=== PATIENT | female | born 1990 | race Hispanic/Latino ===

== ENCOUNTER 2019-06-13 14:11 | Emergency (ER) | payer MEDICAID ==
[2019-06-13 14:18] VITALS: BP 119/74
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
== END 2019-06-13 16:45 | disposition home or self-care (01) ==
LOC: ED 14:11
DX: S39.012A Strain of muscle, fascia and tendon of lower back, initial encounter (principal); R25.2 Cramp and spasm; G43.909 Migraine, unspecified, not intractable, without status migrainosus; F17.200 Nicotine dependence, unspecified, uncomplicated; F12.10 Cannabis abuse, uncomplicated; Z79.899 Other long term (current) drug therapy; V89.2XXA Person injured in unspecified motor-vehicle accident, traffic, initial encounter; Y93.89 Activity, other specified; Y92.410 Unspecified street and highway as the place of occurrence of the external cause; Y99.8 Other external cause status
CPT/HCPCS: 99282

== ENCOUNTER 2020-03-01 22:35 | Emergency (ER) | payer MEDICAID ==
[2020-03-01 22:41] VITALS: BP 122/82
[2020-03-01 23:20] LABS: Bacteria,Urine 1+ /HPF (Negative); Bilirubin,Urine NEG (Negative); Blood,Urine NEG (Negative); Color,Urine Yellow (Yellow); Mucus,Urine 3+ /HPF; Protein,Urine <15 mg/dL mg/dL (Negative)
[2020-03-01 23:25] LABS: Basophils # (Auto) 0.1 K/mm3 (0.0-0.1); Basophils % (Auto) 0.7 % (0.0-1.8); Eosinophils # (Auto) 0.2 K/mm3 (0.0-0.4); Eosinophils % (Auto) 1.9 % (0.0-4.3); Hematocrit 37.7 % (30.3-42.9); Hemoglobin 12.7 gm/dl (10.1-14.3); Lymphocytes # (Auto) 3.2 K/mm3 (1.2-5.4); Lymphocytes % (Auto) 37.1 % (13.4-35.0); Mean Corpuscular HGB Conc 34 % (30-34); Mean Corpuscular Volume 92 fl (79-97); Monocytes # (Auto) 0.8 K/mm3 (0.0-0.8); Platelet Count 257 K/mm3 (140-440)
[2020-03-01 23:31] LABS: Alanine Aminotransferase 11 units/L (7-56); Albumin 4.5 g/dL (3.9-5); BUN/Creatinine Ratio 17; Blood Urea Nitrogen 12 mg/dL (7-17); Calcium 9.2 mg/dL (8.4-10.2); Hemolysis Index 1
== END 2020-03-02 01:10 | disposition left against medical advice (07) ==
LOC: ED 22:35
DX: R10.9 Unspecified abdominal pain (principal); Z53.21 Procedure and treatment not carried out due to patient leaving prior to being seen by health care provider
CPT/HCPCS: 36415; 80053; 81001; 84702; 85025

== ENCOUNTER 2020-06-10 18:37 | Emergency (ER) | payer MEDICAID ==
[2020-06-10 18:47] VITALS: BP 108/71
[2020-06-10 19:28] LABS: Mean Corpuscular HGB Conc 34 % (30-34); Mean Corpuscular Volume 92 fl (79-97); Platelet Count 304 K/mm3 (140-440); Red Blood Count 4.14 M/mm3 (3.65-5.03); Red Cell Distribution Width 12.8 % (13.2-15.2)
[2020-06-10 20:16] LABS: Total Cells Counted 100
[2020-06-10 20:17] LABS: Basophils % (Manual) 0 % (0.0-1.8); Eosinophils % (Manual) 0 % (0.0-4.3)
[2020-06-10 20:18] LABS: Platelet Estimate Consistent w Auto; RBC Morphology Normal
== END 2020-06-10 22:30 | disposition left against medical advice (07) ==
LOC: ED 18:37
DX: O20.8 Other hemorrhage in early pregnancy (principal); O26.891 Other specified pregnancy related conditions, first trimester; R10.9 Unspecified abdominal pain; Z3A.09 9 weeks gestation of pregnancy; Z53.21 Procedure and treatment not carried out due to patient leaving prior to being seen by health care provider
CPT/HCPCS: 36415; 84702; 84703; 85007; 85025; 86900; 86901

== ENCOUNTER 2020-10-25 14:28 | Emergency (ER) | payer MEDICAID ==
[2020-10-25 14:55] VITALS: BP 103/58
--- NOTE | 2020-10-25 15:51 | Event Note ---
ED Screening Note Date of service: 10/25/20 Time: 15:48 ED Screening Note: 30-year-old female presents to the emergency room reporting that she feels her jaw is dislocated. Patient denies any trauma. She is currently 7 months . Patient is taking nothing for her pain. Patient reports she has a history of jaw dislocation and discharge today when he came out. Dr. Godoy came to evaluate patient agrees that jaw is dislocated. Patient will be evaluated by the main ER docs. This initial assessment/diagnostic orders/clinical plan/treatment(s) is/are subject to change based on patients health status, clinical progression and re- assessment by fellow clinical providers in the ED. Further treatment and workup at subsequent clinical providers discretion. Patient/guardian urged not to elope from the ED as their condition may be serious if not clinically assessed and managed. Initial orders include:
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
== END 2020-10-25 23:00 | disposition home or self-care (01) ==
LOC: ED 14:28
DX: S03.00XA Dislocation of jaw, unspecified side, initial encounter (principal); G43.909 Migraine, unspecified, not intractable, without status migrainosus; Z79.899 Other long term (current) drug therapy; X58.XXXA Exposure to other specified factors, initial encounter; Y93.89 Activity, other specified; Y92.89 Other specified places as the place of occurrence of the external cause; Y99.8 Other external cause status
CPT/HCPCS: 99281

== ENCOUNTER 2020-12-04 01:15 | Outpatient (CLI) | payer MEDICAID ==
[2020-12-04 01:46] VITALS: BP 121/74
[2020-12-04] MEDS ORDERED: LACTATED RINGERS 1,000 ML IV ONE (01:57)
[2020-12-04 03:08] LABS: Amorphous Crystals,Urine Few; Bacteria,Urine 1+ /HPF (Negative); Bilirubin,Urine NEG (Negative); Blood,Urine NEG (Negative); Color,Urine Yellow (Yellow); Protein,Urine <15 mg/dL mg/dL (Negative); Urobilinogen,Urine < 2.0 mg/dL (<2.0)
== END 2020-12-04 04:33 | disposition home or self-care (01) ==
LOC: TRG 01:15 → APU 01:17 → TRG 04:33
PROVIDERS: ATTEND Obstetrics & Gynecology
DX: O47.03 False labor before 37 completed weeks of gestation, third trimester (principal); O99.333 Smoking (tobacco) complicating pregnancy, third trimester; F17.200 Nicotine dependence, unspecified, uncomplicated; O99.323 Drug use complicating pregnancy, third trimester; F12.90 Cannabis use, unspecified, uncomplicated; Z3A.34 34 weeks gestation of pregnancy
CPT/HCPCS: 59025; 81001; 87086; 96361; 96365; J0690; J7120; 96360

== ENCOUNTER 2021-01-02 07:50 | Inpatient (IN) | payer MEDICAID ==
--- NOTE | 2021-01-02 09:50 | History and Physical Report ---
History of Present Illness Date of examination: 01/02/21 Date of admission: 01/02/21 Chief complaint: Pt presented with c/o uc and bloody show. History of present illness: Pt presented to [facility] with c/o uc and bloody show. She denied LOF and admitted to active FM. Pt states she initiated her pnc at [facility] in early preg. According to pt, her preg has been uneventful. Medical/surgical hx unremarkable. She admits to being a smoker. She also smokes THC. Family hx unremarkable per pt. No records are available at this time. Staff was advised to obtain MR. Palomo was found to be 5/60%-2 and was admitted to L&D. Past History Past Medical History: no pertinent history Past Surgical History: no surgical history [employer]EARCH SCHOLAR History: trichomonas Family/Genetic History: none Social history: smoking, full code, other (thc use) - Obstetrical History Expected Date of Delivery: 01/11/21 Actual Gestation: 38 Week(s) 5 Day(s) : 4 Para: 2 Hx # Term Pregnancies: 2 Number of Pregnancies: 0 Spontaneous Abortions: 1 Induced : 0 Number of Living Children: 2 Medications and Allergies Allergies Allergy/AdvReac Type Severity Reaction Status Date / Time No Known Allergies Allergy Verified 06/13/19 14:17 Home Medications Medication Instructions Recorded Confirmed Last Taken Type Naproxen 500 mg PO BID PRN #20 tablet 06/13/19 Unknown Rx tiZANidine [Zanaflex 4mg TAB] 4 mg PO TID PRN #15 tablet 06/13/19 Unknown Rx Active Meds: Active Medications Butorphanol Tartrate (Butorphanol 2 Mg/1 Ml Inj) 1 mg IV Q2H PRN PRN Reason: Pain, Moderate(4-6) LABOR PAIN Butorphanol Tartrate (Butorphanol 2 Mg/1 Ml Inj) 2 mg IV Q2H PRN PRN Reason: Pain , Severe (7-10) Ephedrine Sulfate (Ephedrine Sulfate 50 Mg/1 Ml Inj) 10 mg IV Q2M PRN PRN Reason: Hypotension Fentanyl (Fentanyl 100 Mcg/2 Ml Inj) 100 mcg IV Q2H PRN PRN Reason: Pain,Severe (7-10) LABOR PAIN Oxytocin/Sodium Chloride (Pitocin/Ns 30 Unit/500ml) 30 units in 500 mls @ 2 mls /hr IV TITR PATRICIA; Protocol Lactated Ringer's (Lactated Ringers) 1,000 mls @ 125 mls/hr IV DIRECT PATRICIA Oxytocin/Sodium Chloride (Pitocin/Ns 30 Unit/500ml) 30 units in 500 mls @ 40 mls/hr IV TITR PATRICIA; Protocol Lidocaine (Lidocaine (2%) 20 Mg/1 Ml Vial 20 Ml Mdv) 20 ml INFILTRATI ONCE ONE Stop: 01/02/21 09:31 Mineral Oil (Mineral Oil 30 Ml Oral Liqd) 30 ml PO QHS PRN PRN Reason: Constipation Terbutaline Sulfate (Terbutaline 1 Mg/1 Ml Inj) 0.25 mg SUB-Q ONCE PRN PRN Reason: Hyperstimulation/Hypertonicity Review of Systems All systems: negative Eyes: deferred Ears, nose, mouth and throat: deferred Breasts: normal Genitourinary: normal appearance Rectal Exam: deferred - Vital Signs Vital signs: Vital Signs Pulse BP 77 111/74 01/02/21 08:41 01/02/21 08:41 Temp Pulse Resp BP Pulse Ox 98.2 F 120 H 16 111/74 01/02/21 08:48 01/02/21 08:48 01/02/21 08:48 01/02/21 08:48 - Physical Exam Breasts: Positive: normal Abdomen: Positive: normal appearance, soft, normal bowel sounds Genitourinary (Female): Positive: normal external genitalia, normal perenium Vulva: both: normal Vagina: Positive: normal moisture Uterus: Positive: enlarged, other (gravid) Adnexa: both: normal Anus/Rectum: Positive: normal perianal skin Extremities: Positive: normal - Obstetrical FHR: auscultation normal, category 1 Uterine Contraction Monitor Mode: External Cervical Dilatation: 5 Cervical Effacement Percentage: 60 station: -2 Uterine Contraction Pattern: Irregular Uterine Tone Measurement Phase: Resting Uterine Contraction Intensity: Mild Results All other labs normal. Assessment and Plan A: IUP@ 38.5 wks GBS neg P: Admit to L&D Continuous monitoring Obtain PNR Pain med/Epidural prn Anticipate
[2021-01-02] MEDS ORDERED: TERBUTALINE 1 MG/1 ML INJ SUB-Q PRN (10:00)
[2021-01-02] MEDS ORDERED: LIDOCAINE (2%) 20 MG/1 ML VIAL 20 ML MDV INFILTRATI SCH (10:00)
[2021-01-02] MEDS ORDERED: BUTORPHANOL 2 MG/1 ML INJ IV PRN ×2 (10:00)
[2021-01-02] MEDS ORDERED: ePHEDrine SULFATE 50 MG/1 ML INJ IV PRN ×2 (10:00→12:34)
[2021-01-02] MEDS ORDERED: LACTATED RINGERS 1,000 ML IV SCH (10:00)
[2021-01-02] MEDS ORDERED: fentaNYL 100 MCG/2 ML INJ IV PRN (10:00)
[2021-01-02] MEDS ORDERED: OXYTOCIN DRIP 30 UNITS/500 ML BAG IV SCH ×2 (10:00)
[2021-01-02] MEDS ORDERED: MINERAL OIL 30 ML ORAL LIQD PO PRN (10:00)
[2021-01-02] MEDS ORDERED: metroNIDAZOLE 500 MG TAB PO NR (10:05)
[2021-01-02 10:35] LABS: Hematocrit 37.3 % (30.3-42.9); Hemoglobin 12.5 gm/dl (10.1-14.3); Mean Corpuscular HGB Conc 34 % (30-34); Mean Corpuscular Volume 93 fl (79-97); Platelet Count 370 K/mm3 (140-440); Red Cell Distribution Width 13.2 % (13.2-15.2)
[2021-01-02] MEDS ORDERED: NALOXONE 2 MG/2 ML INJ IV PRN (12:34)
--- NOTE | 2021-01-02 12:34 | Anesthesia Consultation ---
Anesthesia Consult and Med Hx Date of service: 01/02/21 - Airway Anesthetic Teeth Evaluation: Good ROM Head & Neck: Adequate Mental/Hyoid Distance: Adequate Mallampati Class: Class II Intubation Access Assessment: Probably Good - Pulmonary Exam CTA: Yes - Cardiac Exam Cardiac Exam: RRR - Pre-Operative Health Status ASA Pre-Surgery Classification: ASA3 Proposed Anesthetic Plan: Epidural - Pulmonary Hx Smoking: Yes Hx Asthma: No COPD: No Hx Pneumonia: No - Cardiovascular System Hx Hypertension: No - Central Nervous System Hx Seizures: No Hx Psychiatric Problems: No - Endocrine Hx Renal Disease: No Hx End Stage Renal Disease: No Hx Hypothyroidism: No Hx Hyperthyroidism: No - Hematic Hx Anemia: No Hx Sickle Cell Disease: No - Other Systems Hx Alcohol Use: Yes Hx Substance Use: Yes (cocaine and thc)
[2021-01-02 12:36] LABS: Bilirubin,Urine NEG (Negative); Blood,Urine MOD (Negative); Color,Urine Straw (Yellow); Mucus,Urine FEW /HPF; Protein,Urine <15 mg/dL mg/dL (Negative); Urobilinogen,Urine < 2.0 mg/dL (<2.0)
[2021-01-02 12:44] LABS: Amphetamine Screen,Urine PRESUMPTIVE NEGATIVE; Benzodiazepines Screen,Urine PRESUMPTIVE NEGATIVE; Cannabinoid Screen,Urine PRESUMPTIVE POSITIVE; Cocaine Screen,Urine PRESUMPTIVE NEGATIVE; Methadone Screen,Urine PRESUMPTIVE NEGATIVE; Opiate Screen,Urine PRESUMPTIVE NEGATIVE
--- NOTE | 2021-01-02 12:47 | Progress Note ---
Labor Epidural - Labor Epidural Start Time: 12:39 Stop Time: 12:42 Performed by:: ANTHONY REID Procedure: Patient is requesting epidural for labor pain. H&P, and labs reviewed. Procedure explained, questions answered, consent obtained. Patient in sitting position with blood pressure cuff and pulse ox on and working. Timeout performed immediately before start of procedure. Sterile chlorahexadine 0.5% prep/drape. 5 mL 1% lidocaine skin wheal at L[3]-L[4]. 18-gauge Tuohy epidural needle advanced to [id number] with saline at [7] cm. Epidural dexmedetomidine [30] mcg administered. Epidural catheter advanced to [12] cm, negative aspiration for blood and csf, negative test dose 3 ml 1.5% lidocaine with epinephrine. Sterile steri-strips and tegaderm applied, followed by tape reinforcement. Patient tolerated procedure well.
[2021-01-02] MEDS ORDERED: fentaNYL-BUPIV 2 MCG/ML-0.125% 200 MCG/100 ML BAG EPIDURAL SCH (13:00)
[2021-01-02 14:06] LABS: Alanine Aminotransferase 6 units/L (7-56); Albumin 3.3 g/dL (3.9-5); Blood Urea Nitrogen 7 mg/dL (7-17); Calcium 8.4 mg/dL (8.4-10.2); Hemolysis Index 36
[2021-01-02 14:08] LABS: BUN/Creatinine Ratio 23
[2021-01-02] MEDS ORDERED: WITCH HAZEL/ GLYCERIN PAD TP PRN (15:07)
[2021-01-02] MEDS ORDERED: MAGNESIUM HYDROXIDE (MOM) ORAL LIQD UDC PO PRN (15:07)
[2021-01-02] MEDS ORDERED: PROMETHAZINE 25 MG TAB PO PRN (15:07)
[2021-01-02] MEDS ORDERED: LANOLIN/ZINC/DIMETHICONE (LANSINOH) 7 GM TP PRN (15:07)
[2021-01-02] MEDS ORDERED: ONDANSETRON 4 MG/2 ML INJ IV PRN (15:07)
[2021-01-02] MEDS ORDERED: diphenhydrAMINE 25 MG CAP PO PRN (15:07)
[2021-01-02] MEDS ORDERED: PROMETHAZINE 25 MG RECT SUPP PR PRN (15:07)
--- NOTE | 2021-01-02 15:16 | Procedure Note ---
OB Delivery Note - Delivery Date of Delivery: 01/02/21 Surgeon: ROSA HOLT Estimated blood loss: other (250cc) - Vaginal Delivery presentation: vertex Delivery position: OA Intrapartum events: meconium Delivery induction: none Delivery augmentation: rupture of membranes, pitocin Delivery monitor: external FHT, external uterine Route of delivery: Delivery placenta: spontaneous Delivery cord: 3 umbilical vessels Episiotomy: none Delivery laceration: none Anesthesia: epidural Delivery comments: of live viable female infant in OA pos thru mec. Spont del of shoulders and body. Infant placed on maternal chest for skin to skin bonding. Delayed cord clamping then cord was clamped x 2 and cut. Infant was taken to warmer by NICU nurse for an asses. 8/9. Spon del of intact placenta with CVX3. FF@ U2 with fundal massage and IV Pitocin. An exploration of tears revealed none. EBL 250cc. FW 3219 Gms. Mom and baby left in stable condition with L&D nurse.
[2021-01-02] MEDS: IBUPROFEN 600 MG TAB PO SCH ×2 (19:04→23:50)
[2021-01-03] MEDS: IBUPROFEN 600 MG TAB PO SCH (06:02)
[2021-01-03 06:31] LABS: Hematocrit 32.5 % (30.3-42.9); Hemoglobin 10.7 gm/dl (10.1-14.3)
--- NOTE | 2021-01-03 09:08 | Progress Note ---
Assessment and Plan PPD # 1 A: S/P Hx drug use Rubella NI p: Continue routine pp care Awaiting SS visit Offer Rubella vaccine May d/c home with baby if ok with SS per pt request - Patient Problems (1) History of drug use Current Visit: Yes Status: Acute Subjective - Subjective Date of service: 01/03/21 Principal diagnosis: s/p Interval history: Pt presented to [facility] with c/o uc and bloody show. She denied LOF and admitted to active FM. Pt states she initiated her pnc at [facility] in early preg. According to pt, her preg has been uneventful. Medical/surgical hx unremarkable. She admits to being a smoker. She also smokes THC. Family hx unremarkable per pt. No records are available at this time. Staff was advised to obtain Pt was found to be 5/60%-2 and was admitted to L&D. Patient reports: appetite normal, voiding normally, pain well controlled, ambulating normally : doing well, bottle feeding Objective - Vital Signs Latest vital signs: Vital Signs Temp Pulse Resp BP BP Pulse Ox 01/03/21 04:26 98.5 F 61 18 110/67 98 01/02/21 23:52 97.8 F 62 18 110/47 97 01/02/21 20:11 97.7 F 60 18 117/76 98 01/02/21 17:57 97.8 F 55 L 18 113/72 100 01/02/21 17:12 71 115/59 01/02/21 17:07 65 100/66 01/02/21 17:03 63 108/64 01/02/21 16:58 74 96/50 01/02/21 16:52 54 L 97/59 01/02/21 16:47 52 L 97/60 01/02/21 16:42 59 L 94/58 01/02/21 16:38 53 L 102/59 01/02/21 16:34 62 109/55 01/02/21 16:22 57 L 98/57 01/02/21 16:18 57 L 94/51 01/02/21 16:08 90 96/54 01/02/21 15:54 85 102/57 01/02/21 15:38 81 117/65 01/02/21 15:33 81 113/58 01/02/21 15:27 94 H 102/62 01/02/21 15:22 58 L 101/63 01/02/21 15:17 68 104/62 01/02/21 15:13 74 106/59 01/02/21 15:08 80 112/51 01/02/21 15:07 88 01/02/21 15:02 77 121/62 01/02/21 14:58 88 115/58 01/02/21 14:55 85 119/55 01/02/21 14:50 69 93 01/02/21 14:49 84 100 01/02/21 14:42 89 116/68 100 01/02/21 14:37 61 100 01/02/21 14:32 63 98 01/02/21 14:27 56 L 100 01/02/21 14:26 62 127/75 01/02/21 14:22 58 L 100 01/02/21 14:17 66 99 01/02/21 14:12 64 99 01/02/21 14:10 59 L 131/86 01/02/21 14:07 59 L 100 01/02/21 14:02 57 L 100 01/02/21 13:57 55 L 99 01/02/21 13:55 56 L 100/57 01/02/21 13:52 59 L 99 01/02/21 13:47 64 98 01/02/21 13:42 64 98 01/02/21 13:40 53 L 101/58 01/02/21 13:37 60 98 01/02/21 13:32 67 98 01/02/21 13:27 58 L 98 01/02/21 13:25 57 L 101/60 01/02/21 13:22 54 L 99 01/02/21 13:17 63 98 01/02/21 13:12 65 98 01/02/21 13:07 60 99 01/02/21 13:02 65 98 01/02/21 12:57 66 98 01/02/21 12:54 59 L 105/62 01/02/21 12:52 74 113/77 99 01/02/21 12:50 62 112/57 01/02/21 12:48 80 113/59 01/02/21 12:47 63 97 01/02/21 12:46 57 L 116/58 01/02/21 12:44 54 L 105/64 01/02/21 12:42 62 113/71 99 01/02/21 12:40 70 118/75 01/02/21 12:38 68 114/75 01/02/21 12:37 65 100 01/02/21 12:32 61 99 01/02/21 12:27 53 L 99 01/02/21 12:22 54 L 98 01/02/21 12:17 63 98 01/02/21 12:12 60 97 01/02/21 12:07 77 98 01/02/21 12:02 58 L 98 01/02/21 11:59 53 L 115/73 01/02/21 11:57 65 97 01/02/21 11:52 64 97 01/02/21 11:47 72 97 01/02/21 11:42 65 97 01/02/21 11:37 65 98 01/02/21 11:27 60 97 01/02/21 11:22 66 96 01/02/21 11:17 66 97 01/02/21 11:12 60 97 01/02/21 11:07 71 98 01/02/21 11:02 68 98 01/02/21 10:58 71 113/72 01/02/21 10:57 69 98 01/02/21 10:24 97.7 F Intake and Output 01/02/21 01/03/21 01/03/21 22:59 06:59 14:59 Intake Total 120 240 Output Total 400 300 Balance -280 -60 Intake: Oral 120 240 Output: Urine 400 300 Void 400 300 Other: Total, Intake Amount 120 240 Total, Output Amount 200 300 # Voids Void 1 1 Estimated Blood Loss 250 - Exam Breasts: Present: normal Abdomen: Present: normal appearance, soft, normal bowel sounds Vulva: both: normal Uterus: Present: normal, firm, fundal height below umbilicus Extremities: Present: normal - Labs Labs: Abnormal lab results 01/02/21 01/02/21 01/02/21 Range/Units 09:55 13:20 Unknown WBC 16.0 H (4.5-11.0) K/mm3 Sodium 136 L (137-145) mmol/L Carbon Dioxide 21 L (22-30) mmol/L Creatinine 0.3 L (0.6-1.2) mg/dL ALT 6 L (7-56) units/L Alkaline Phosphatase 211 H (35-129) units/L Total Protein 5.9 L (6.3-8.2) g/dL Albumin 3.3 L (3.9-5) g/dL U Epithel Cells (Auto) 18.0 H (0-13.0) /HPF
[2021-01-03 10:17] VITALS: BP 100/60
[2021-01-03] MEDS ORDERED: MEASLES, MUMPS & RUBELLA 12,500 UNIT/0.5 ML VACCINE SUB-Q ONE (14:00)
--- NOTE | 2021-01-03 15:12 | Post Anesthesia Evaluation ---
- Post Anesthesia Evaluation Patient Participated: Yes Airway Patent: Yes Stable Respiratory Function: Yes Nausea/Vomiting: No Temp > 96.8F: Yes Pain Manageable: Yes Adequeate Hydration: Yes Anesthesia Complications: No Block Receding Appropriately: Yes
--- NOTE | 2021-01-03 18:00 | Discharge Summary ---
Providers - Providers Date of Admission: 01/02/21 07:51 Date of discharge: 01/03/21 Attending physician: ANGÉLICA PABON MD 01/02/21 10:04 Consult to Case Management [CONS] Routine Services Needed at Discharge: Tile Layer Notified:: case management Additional Physician Instructions: Pt was pos for cocaine and THC on 11/03/20. Non complant with drug rehab. Please notify [facility] Primary care physician: ANGÉLICA PABON MD Hospitalization Reason for admission: active labor Delivery: Procedure details: uncomplicated s/p 01/02/21, no lacerations Episiotomy: none Laceration: none [place] baby: male Hospital course: Admitted in active labor on 01/02/21. s/p . Evaluated by CM for hx MJ use. Ok to discharge baby with mom per RN. Discharged per patient request in good condition on 01/03/21. Condition at discharge: Good Disposition: DC-01 TO HOME OR SELFCARE Plan - Provider Discharge Summary Activity: routine Diet: routine Instructions: routine Additional instructions: [] Smoking cessation referral if applicable(refer to patient education folder for contact #) [] Refer to [facility] Booklet Call your doctor immediately for: * Fever > 100.5 * Heavy vaginal bleeding ( >1 pad per hour) * Severe persistent headache * Shortness of breath * Reddened, hot, painful area to leg or breast * Drainage or odor from incision. * Keep incision clean and dry at all times and follow doctor's instructions regarding bathing/showering - Follow up plan Follow up: ANGÉLICA PABON MD [Primary Care Provider] - 6 Weeks
== END 2021-01-03 18:55 | disposition home or self-care (01) | DRG 774 ==
LOC: TRG 07:50 → LD 07:50 → APU 07:51 → LD 07:51 → TRG 09:30 → OB 17:51
PROVIDERS: ADMIT Obstetrics & Gynecology; ATTEND Obstetrics & Gynecology
PROC: 10E0XZZ Delivery of Products of Conception, External Approach (ICD-10-PCS; principal; 2021-01-02)
PROC: 3E0R3BZ Introduction of Anesthetic Agent into Spinal Canal, Percutaneous Approach (ICD-10-PCS; 2021-01-02)
PROC: 00HU33Z Insertion of Infusion Device into Spinal Canal, Percutaneous Approach (ICD-10-PCS; 2021-01-02)
DX: O77.0 Labor and delivery complicated by meconium in amniotic fluid (principal); O98.32 Other infections with a predominantly sexual mode of transmission complicating childbirth; O99.324 Drug use complicating childbirth; O99.334 Smoking (tobacco) complicating childbirth; A60.09 Herpesviral infection of other urogenital tract; F14.90 Cocaine use, unspecified, uncomplicated; Z20.822 Contact with and (suspected) exposure to COVID-19; Z3A.38 38 weeks gestation of pregnancy; Z37.0 Single live birth
CPT/HCPCS: 36415; 59025; 80053; 80307; 81001; 85014; 85018; 85027; 86850; 86900; 86901; 87086; G0378; J0595; J2590; J7120; U0003

== ENCOUNTER 2021-12-10 10:36 | Inpatient (IN) | payer MEDICAID ==
[2021-12-10] MEDS ORDERED: NalbUPHINE 10 MG/1 ML INJ IV PRN (11:33)
[2021-12-10] MEDS ORDERED: LIDOCAINE (2%) 20 MG/1 ML VIAL 20 ML MDV INFILTRATI ONE (11:33)
[2021-12-10] MEDS ORDERED: miSOPROStol 200 MCG TAB PR PRN (11:33)
[2021-12-10] MEDS ORDERED: ACETAMINOPHEN 325 MG TAB PO PRN ×2 (11:33→13:20)
[2021-12-10] MEDS ORDERED: TERBUTALINE 1 MG/1 ML INJ SUB-Q PRN (11:33)
[2021-12-10] MEDS ORDERED: fentaNYL 100 MCG/2 ML INJ IV PRN (11:33)
[2021-12-10] MEDS ORDERED: ePHEDrine SULFATE 50 MG/1 ML INJ IV PRN (11:33)
[2021-12-10] MEDS ORDERED: BUTORPHANOL 2 MG/1 ML INJ IV PRN (11:33)
[2021-12-10] MEDS ORDERED: LACTATED RINGERS 1,000 ML IV SCH (11:45)
[2021-12-10 11:53] LABS: Hematocrit 34.7 % (30.3-42.9); Hemoglobin 11.9 gm/dl (10.1-14.3); Mean Corpuscular HGB Conc 34 % (30-34); Mean Corpuscular Volume 92 fl (79-97); Platelet Count 351 K/mm3 (140-440); Red Blood Count 3.78 M/mm3 (3.65-5.03); Red Cell Distribution Width 13.1 % (13.2-15.2)
[2021-12-10] MEDS ORDERED: OXYTOCIN 10 UNIT/1 ML INJ IM PRN (12:00)
[2021-12-10] MEDS ORDERED: LOPERAMIDE 2 MG CAP PO PRN (12:00)
[2021-12-10] MEDS ORDERED: AMPICILLIN/NS 2 GM/100 ML 2 GM/100 ML BAG IV ONE (12:00)
[2021-12-10] MEDS ORDERED: OXYTOCIN DRIP 30 UNITS/500 ML BAG IV SCH ×2 (12:00)
[2021-12-10] MEDS ORDERED: CARBOPROST TROMETHAMINE 250 MCG/1 ML INJ IM PRN (12:00)
[2021-12-10] MEDS ORDERED: METHYLERGONOVINE MALEATE 0.2 MG/ML VIAL IM PRN (12:00)
[2021-12-10] MEDS ORDERED: MINERAL OIL 30 ML ORAL LIQD ONE (12:23)
--- NOTE | 2021-12-10 13:17 | History and Physical Report ---
History of Present Illness Date of examination: 12/10/21 Date of admission: 12/10/21 10:37 Chief complaint: Painful contractions at 37+ weeks. History of present illness: . 37+ wks. BOLA 12/28/21. Past History Past Medical History: no pertinent history Past Surgical History: no surgical history - Obstetrical History Expected Date of Delivery: 12/28/21 Actual Gestation: 37 Week(s) 3 Day(s) : 5 Para: 3 Spontaneous Abortions: 1 Medications and Allergies Allergies Allergy/AdvReac Type Severity Reaction Status Date / Time No Known Allergies Allergy Verified 10/20/21 09:13 Home Medications Medication Instructions Recorded Confirmed Last Taken Type Naproxen 500 mg PO BID PRN #20 tablet 06/13/19 01/02/21 Unknown Rx tiZANidine [Zanaflex 4mg TAB] 4 mg PO TID PRN #15 tablet 06/13/19 01/02/21 Unknown Rx DOXYCYCLINE Hyclate [Vibramycin 100 mg PO Q12HR 7 Days capsule 03/08/20 Unknown Rx CAP] Active Meds: Active Medications Acetaminophen (Acetaminophen 325 Mg Tab) 650 mg PO Q4H PRN PRN Reason: Pain, Mild (1-3) Butorphanol Tartrate (Butorphanol 2 Mg/1 Ml Inj) 2 mg IV Q2H PRN PRN Reason: Pain , Severe (7-10) Carboprost Tromethamine (Carboprost Tromethamine 250 Mcg/1 Ml Inj) 250 mcg IM ONCE PRN PRN Reason: Uterine Bleeding Ephedrine Sulfate (Ephedrine Sulfate 50 Mg/1 Ml Inj) 10 mg IV Q2M PRN PRN Reason: Hypotension Fentanyl (Fentanyl 100 Mcg/2 Ml Inj) 100 mcg IV Q2H PRN PRN Reason: Pain,Severe (7-10) LABOR PAIN Oxytocin/Sodium Chloride (Pitocin/Ns 30 Unit/500ml) 30 units in 500 mls @ 2 mls/hr IV TITR PATRICIA; Protocol Lactated Ringer's (Lactated Ringers) 1,000 mls @ 125 mls/hr IV DIRECT PATRICIA Oxytocin/Sodium Chloride (Pitocin/Ns 30 Unit/500ml) 30 units in 500 mls @ 40 mls/hr IV TITR PATRICIA; Protocol Loperamide HCl (Loperamide 2 Mg Cap) 2 mg PO ONCE PRN PRN Reason: give with Hemabate Methylergonovine Maleate (Methylergonovine Maleate 0.2 Mg/Ml Vial) 0.2 mg IM ONCE PRN PRN Reason: Uterine Bleeding Mineral Oil (Mineral Oil 30 Ml Oral Liqd) 30 ml PO QHS PRN PRN Reason: Constipation Misoprostol (Misoprostol 200 Mcg Tab) 800 mcg LA ONCE PRN PRN Reason: Uterine Bleeding Nalbuphine HCl (Nalbuphine 10 Mg/1 Ml Inj) 10 mg IV Q2H PRN PRN Reason: Pain, Moderate (4-6) Oxytocin (Oxytocin 10 Unit/1 Ml Inj) 10 unit IM ONCE PRN PRN Reason: Uterine Bleeding Terbutaline Sulfate (Terbutaline 1 Mg/1 Ml Inj) 0.25 mg SUB-Q ONCE PRN PRN Reason: Hyperstimulation/Hypertonicity Review of Systems All systems: negative Genitourinary: pelvic pain, contractions - Vital Signs Vital signs: Vital Signs Pulse BP 66 112/60 12/10/21 10:54 12/10/21 10:54 Temp Pulse Resp BP Pulse Ox 98.3 F 57 L 16 119/76 88 12/10/21 11:04 12/10/21 13:11 12/10/21 11:04 12/10/21 13:08 12/10/21 13:11 - Physical Exam Breasts: Positive: deferred Lungs: Positive: Normal air movement Abdomen: Positive: normal appearance, soft Genitourinary (Female): Positive: normal external genitalia Vulva: both: normal Vagina: Positive: normal moisture. Negative: discharge Cervix: Negative: lesion, discharge Uterus: Positive: enlarged, normal contour Anus/Rectum: Positive: normal perianal skin, heme negative. Negative: rectal mass, hemorrhoids Extremities: Deep Tendon Reflex Grade: Normal +2 - Obstetrical FHR: category 1 Uterine Contraction Monitor Mode: External Cervical Dilatation: 9 Cervical Effacement Percentage: 100 (ARM done.) station: 0 Uterine Contraction Frequency (min): Q2-3MINS Uterine Contraction Pattern: Regular Uterine Contraction Intensity: Strong/Firm Results Result Diagrams: 12/10/21 11:30 Abnormal lab results 12/10/21 Range/Units 11:30 WBC 12.3 H (4.5-11.0) K/mm3 RDW 13.1 L (13.2-15.2) % All other labs normal. Assessment and Plan - Patient Problems (1) with 37 weeks completed gestation Current Visit: Yes Status: Acute (2) 37 or more weeks gestation of Current Visit: Yes Status: Acute (3) Active labor at term Current Visit: Yes Status: Acute Plan to address problem: Delivered within moments after evaluation.
[2021-12-10] MEDS ORDERED: LANOLIN/ZINC/DIMETHICONE (LANSINOH) 7 GM TP PRN (13:20)
[2021-12-10] MEDS ORDERED: MAGNESIUM HYDROXIDE (MOM) ORAL LIQD UDC PO PRN (13:20)
[2021-12-10] MEDS ORDERED: PROMETHAZINE 25 MG TAB PO PRN (13:20)
[2021-12-10] MEDS ORDERED: ONDANSETRON 4 MG/2 ML INJ IV PRN (13:20)
[2021-12-10] MEDS ORDERED: WITCH HAZEL/ GLYCERIN PAD TP PRN (13:20)
[2021-12-10] MEDS ORDERED: HYDROcodone/ACETAMINOPHEN 5-325 MG TAB PO PRN (13:20)
[2021-12-10] MEDS ORDERED: diphenhydrAMINE 25 MG CAP PO PRN (13:20)
[2021-12-10] MEDS ORDERED: PROMETHAZINE 25 MG RECT SUPP PR PRN (13:20)
--- NOTE | 2021-12-10 13:24 | Procedure Note ---
OB Delivery Note - Delivery Date of Delivery: 12/10/21 Surgeon: XAVIER MASSEY Estimated blood loss: 300cc - Vaginal Delivery presentation: vertex Delivery position: OA Intrapartum events: none Delivery induction: none Delivery augmentation: rupture of membranes Delivery monitor: external FHT, external uterine Route of delivery: Delivery placenta: spontaneous, expressed Delivery cord: 3 umbilical vessels Episiotomy: none Delivery laceration: none Anesthesia: none - A at 1 minute: 8 at 5 minutes: 9 Gender: Male
[2021-12-10 19:46] LABS: Amphetamine Screen,Urine Negative; Benzodiazepines Screen,Urine Negative; Cocaine Screen,Urine Negative; Methadone Screen,Urine Negative; Opiate Screen,Urine Negative
[2021-12-10 19:57] LABS: Cannabinoid Screen,Urine Positive
[2021-12-10] MEDS ORDERED: MINERAL OIL 30 ML ORAL LIQD PO PRN (22:00)
[2021-12-11 01:24] LABS: Hematocrit 34.6 % (30.3-42.9); Hemoglobin 11.5 gm/dl (10.1-14.3)
--- NOTE | 2021-12-11 09:21 | Progress Note ---
Assessment and Plan - Patient Problems (1) with 37 weeks completed gestation Current Visit: Yes Status: Resolved (2) 37 or more weeks gestation of Current Visit: Yes Status: Resolved (3) Active labor at term Current Visit: Yes Status: Resolved (4) Status post vaginal delivery Current Visit: Yes Status: Acute Plan to address problem: Stable. Subjective - Subjective Date of service: 12/11/21 Principal diagnosis: day 1. Interval history: . 37+ wks. BOLA 12/28/21. Delivered 12/10/21. Wants to go home. Patient reports: appetite normal, voiding normally, pain well controlled [place]: doing well Objective - Vital Signs Latest vital signs: Vital Signs Temp Pulse Resp BP BP Pulse Ox Pulse Ox 12/11/21 08:21 97 12/11/21 08:09 98.2 F 66 18 106/65 95 12/10/21 20:55 98.1 F 60 18 114/76 99 12/10/21 20:00 97 12/10/21 18:03 98.1 F 67 20 108/68 97 12/10/21 16:15 67 97 12/10/21 16:10 64 96 12/10/21 16:09 86 114/57 12/10/21 16:05 82 98 12/10/21 16:00 69 96 12/10/21 15:55 55 L 97 12/10/21 15:53 48 L 111/70 12/10/21 15:50 55 L 97 12/10/21 15:45 57 L 96 12/10/21 15:40 56 L 96 12/10/21 15:38 50 L 112/79 12/10/21 15:35 55 L 96 12/10/21 15:30 55 L 95 12/10/21 15:25 58 L 96 12/10/21 15:23 72 106/76 12/10/21 15:20 56 L 96 12/10/21 15:15 55 L 97 12/10/21 15:10 51 L 97 12/10/21 15:09 47 L 112/71 12/10/21 15:05 56 L 96 12/10/21 15:00 51 L 97 12/10/21 14:55 62 97 12/10/21 14:53 80 99/77 12/10/21 14:50 54 L 98 12/10/21 14:45 60 97 12/10/21 14:42 77 94 12/10/21 14:40 77 97 12/10/21 14:38 65 104/71 12/10/21 14:35 64 99 12/10/21 14:30 63 98 12/10/21 14:25 77 97 12/10/21 14:24 67 122/67 12/10/21 14:20 70 97 12/10/21 14:15 77 97 12/10/21 14:10 75 97 12/10/21 14:09 72 111/64 12/10/21 14:05 68 97 12/10/21 14:00 78 86 12/10/21 13:55 53 L 98 12/10/21 13:54 66 98/55 12/10/21 13:50 51 L 99 12/10/21 13:45 53 L 98 12/10/21 13:40 50 L 98 12/10/21 13:35 47 L 99 12/10/21 13:30 48 L 100 12/10/21 13:25 48 L 99 12/10/21 13:24 46 L 132/76 12/10/21 13:20 45 L 99 12/10/21 13:15 45 L 97 12/10/21 13:11 57 L 88 12/10/21 13:10 56 L 96 12/10/21 13:08 119/76 12/10/21 13:05 49 L 96 12/10/21 13:00 68 94 12/10/21 12:55 67 99 12/10/21 12:54 75 94 12/10/21 12:53 75 114/74 12/10/21 12:50 66 95 12/10/21 12:45 66 96 12/10/21 12:40 74 97 12/10/21 12:35 65 98 12/10/21 12:30 76 98 12/10/21 12:25 96 H 95 12/10/21 12:20 87 99 12/10/21 12:15 77 96 12/10/21 12:10 77 99 12/10/21 12:05 80 98 12/10/21 12:02 70 89 12/10/21 12:00 92 H 97 12/10/21 11:55 77 97 12/10/21 11:52 77 94 12/10/21 11:50 68 96 12/10/21 11:46 70 94 12/10/21 11:45 68 129/75 94 12/10/21 11:16 69 97 12/10/21 11:11 70 96 12/10/21 11:06 77 97 12/10/21 11:04 98.3 F 68 16 112/60 98 12/10/21 11:01 69 97 12/10/21 10:56 78 97 12/10/21 10:54 66 112/60 Intake and Output 12/10/21 12/11/21 12/11/21 23:59 07:59 15:59 Intake Total 240 320 Output Total 300 300 600 Balance -60 -300 -280 Intake: Oral 320 Intake, Free Water 240 Output: Urine 300 300 600 Void 300 300 600 Other: Total, Intake Amount 320 Total, Output Amount 300 300 600 # Voids Void 1 - Exam Lungs: Present: Normal air movement Abdomen: Present: normal appearance, soft, normal bowel sounds Extremities: Present: normal Deep Tendon Reflex Grade: Normal +2 - Labs Labs: Abnormal lab results 12/10/21 Range/Units 11:30 WBC 12.3 H (4.5-11.0) K/mm3 RDW 13.1 L (13.2-15.2) %
--- NOTE | 2021-12-11 09:23 | Discharge Summary ---
Providers - Providers Date of Admission: 12/10/21 10:37 Date of discharge: 12/11/21 Attending physician: XAVIER MASSEY MD 12/11/21 05:05 Consult to Case Management [CONS] Routine Services Needed at Discharge: Other Notified:: No Additional Physician Instructions: UDS postive for THC Primary care physician: XAVIER MASSEY MD Hospitalization Reason for admission: active labor, IUP at term Delivery: Episiotomy: none Laceration: none Other procedures: none complications: none Discharge diagnosis: IUP at term delivered baby: male Condition at discharge: Good Disposition: 01 HOME / SELF CARE / HOMELESS - Discharge Diagnoses (1) with 37 weeks completed gestation Status: Resolved (2) 37 or more weeks gestation of Status: Resolved (3) Active labor at term Status: Resolved (4) Status post vaginal delivery Status: Acute Plan - Provider Discharge Summary Activity: routine, no sex for 6 weeks, no heavy lifting 4 weeks, no strenuous exercise Diet: routine Instructions: routine Additional instructions: [] Smoking cessation referral if applicable(refer to patient education folder for contact #) [] Refer to [facility] Booklet Call your doctor immediately for: * Fever > 100.5 * Heavy vaginal bleeding ( >1 pad per hour) * Severe persistent headache * Shortness of breath * Reddened, hot, painful area to leg or breast * Drainage or odor from incision. * Keep incision clean and dry at all times and follow doctor's instructions regarding bathing/showering - Follow up plan Follow up: XAVIER MASSEY MD [Primary Care Provider] - 7 Days
[2021-12-11 16:49] VITALS: BP 122/70
== END 2021-12-11 21:00 | disposition home or self-care (01) | DRG 775 ==
LOC: TRG 10:36 → APU 10:36 → LD 10:36 → TRG 11:52 → OB 16:55
PROVIDERS: ADMIT Obstetrics & Gynecology; ATTEND Obstetrics & Gynecology
PROC: 10E0XZZ Delivery of Products of Conception, External Approach (ICD-10-PCS; principal; 2021-12-10)
DX: O80 Encounter for full-term uncomplicated delivery (principal); Z3A.37 37 weeks gestation of pregnancy; Z37.0 Single live birth; Z79.899 Other long term (current) drug therapy; Z20.822 Contact with and (suspected) exposure to COVID-19
CPT/HCPCS: 36415; 80307; 85014; 85018; 85027; 86592; 86706; 86762; 86850; 86900; 86901; 87806; G0378; U0003

== ENCOUNTER 2021-12-26 09:15 | Day surgery (SDC) | payer MEDICAID ==
[2021-12-26] MEDS ORDERED: LACTATED RINGERS 1,000 ML ONE (09:44)
[2021-12-26] MEDS ORDERED: ceFAZolin/Water 2 GM/20 ML 2 GM/20 ML SYRINGE IV ONE (10:59)
[2021-12-26] MEDS ORDERED: KETOROLAC 30 MG/1 ML INJ IV ONE (11:17)
[2021-12-26] MEDS ORDERED: ACETAMINOPHEN 500 MG TAB PO ONE (11:17)
[2021-12-26] MEDS ORDERED: HYDROmorphone 1 MG/1 ML INJ IV PRN (11:18)
[2021-12-26] MEDS ORDERED: ONDANSETRON 4 MG/2 ML INJ IV PRN (11:18)
--- NOTE | 2021-12-26 11:19 | Anesthesia Day of Surgery ---
Anesthesia Day of Surgery - Day of Surgery Patient Examined: Yes Patient H&P Reviewed: Yes Patient is NPO: Yes
--- NOTE | 2021-12-26 11:19 | Anesthesia Consultation ---
Anesthesia Consult and Med Hx Date of service: 12/26/21 - Airway Anesthetic Teeth Evaluation: Poor, Chipped ROM Head & Neck: Adequate Mental/Hyoid Distance: Adequate Mallampati Class: Class II Intubation Access Assessment: Good - Pre-Operative Health Status ASA Pre-Surgery Classification: ASA1 Proposed Anesthetic Plan: General - Pulmonary Hx Smoking: Yes Hx Asthma: No Hx Respiratory Symptoms: No COPD: No Hx Pneumonia: No Hx Sleep Apnea: No - Cardiovascular System Hx Hypertension: No - Central Nervous System Hx Seizures: No CVA: No Hx Psychiatric Problems: No - Gastrointestinal Hx Gastroesophageal Reflux Disease: No - Endocrine Hx Renal Disease: No Hx End Stage Renal Disease: No Hx Liver Disease: No Hx Insulin Dependent Diabetes: No Hx Non-Insulin Dependent Diabetes: No Hx Thyroid Disease: No Hx Hypothyroidism: No Hx Hyperthyroidism: No - Hematic Hx Anemia: No Hx Sickle Cell Disease: No - Other Systems Hx Alcohol Use: No Hx Substance Use: No Hx Cancer: No Hx Obesity: No
[2021-12-26] MEDS ORDERED: LACTATED RINGERS 1,000 ML IV SCH (11:30)
[2021-12-26] MEDS ORDERED: CELECOXIB 200 MG CAP PO NR (12:00)
[2021-12-26] MEDS ORDERED: ceFAZolin/STERILE WATER 2 GM/20 ML SYRINGE IV NR (12:00)
[2021-12-26] MEDS ORDERED: fentaNYL 100 MCG/2 ML INJ ONE ×2 (12:14→14:49)
[2021-12-26] MEDS ORDERED: propofoL 200 MG/20 ML VIAL IV ONE (12:14)
[2021-12-26] MEDS ORDERED: LIDOCAINE PF 100 MG/5 ML (CARDIAC SYRINGE) IV ONE (12:14)
[2021-12-26] MEDS ORDERED: dexAMETHasone 20 MG/5 ML VIAL ONE (12:15)
[2021-12-26] MEDS ORDERED: ONDANSETRON 4 MG/2 ML INJ ONE (12:15)
[2021-12-26] MEDS ORDERED: SUCCINYLCHOLINE CHLORIDE 200 MG/10 ML INJ MDV ONE (12:15)
[2021-12-26] MEDS ORDERED: ROCURONIUM 50 MG/5 ML INJ IV ONE (12:15)
[2021-12-26] MEDS ORDERED: BUPIVACAINE/PF (0.5%) 5 MG/1 ML 30 ML VIAL INFILTRATI ONE (12:19)
[2021-12-26] MEDS ORDERED: NEOSTIGMINE 10MG/10 ML INJ MDV ONE (13:13)
[2021-12-26] MEDS ORDERED: GLYCOPYRROLATE 0.4 MG/2 ML INJ ONE (13:13)
[2021-12-26] MEDS ORDERED: KETOROLAC 30 MG/1 ML INJ ONE (13:15)
[2021-12-26] MEDS ORDERED: SODIUM CHLORIDE 0.9% IRR 1,500 ML BOTTLE IR ONE (13:15)
--- NOTE | 2021-12-26 13:29 | Operative Report ---
Operative Report Operative Report: Date of surgery: December 26, 2021 Admission diagnosis: Voluntary request for tubal sterilization Postoperative diagnosis: The same Procedure: Laparoscopic bilateral salpingectomy Surgeon: Claribel Hung MD Anesthesia: General anesthesia Anesthesiologist: Dahlia LIPSCOMB Estimated blood loss: Less than 5 cc Complications: None Findings: The uterus, fallopian tubes and ovaries were all grossly normal. The bowels, omentum, inferior dome of the diaphragm, the liver were all grossly normal. There were no peritoneal adhesions seen. Procedure in details: Patient was taken to the operating room and in the straight supine position she was given general anesthesia. Patient was then put in the lithotomy position and prepped in the vulvar vagina and abdomen. The drapes were placed. A timeout was done. With the go ahead from the highway research engineer, an indwelling Beaver catheter was inserted. A single tooth tenaculum forceps was attached to the anterior lip of the cervix and was used to uncover the acorn cannula. At the navel a small stab incision was made in the sub-umbilical aspect. The Veress needle was carefully inserted into the peritoneal cavity, making sure to point the tip of this instruments towards the free hollow of the pelvis. The Veress needle was thereafter aspirated and no blood was drawn. Veress needle was then flushed through with a small quantity of sterile normal saline without any resistance. About 3 and half liters of carbon dioxide was used to insufflate the peritoneal cavity. After removing the Veress needle, a 5 mm trocar with its port was inserted into the peritoneal cavity and again making sure to point the tip of this instrument into the free hollow of the pelvis. The laparoscope was subsequently confirmed successful access to the peritoneal cavity. 2 additional 5 mm ports were placed in the flanks. The endoscopic LigaSure was used to thermally coagulated the mesosalpinges before transecting each fallopian tube and the uterine cornua. There was no bleeding intraperitoneally. Hemostasis was very good. Careful inspection of the peritoneal cavity was once again done. The pneumoperitoneum was then expelled and all instruments were removed from the abdomen. Oozing from the stab incisions was controlled with the Bovie before each incision was closed with subcuticular 4-0 Vicryl. The patient tolerated the procedure well. There were no complications. Blood loss was estimated at less than 5 cc. All sponges and instruments were accounted for. The patient was transferred in satisfactory condition to the recovery room.
--- NOTE | 2021-12-26 13:31 | History and Physical Report ---
History of Present Illness Date of examination: 12/26/21 Date of admission: 12/27/2019 Chief complaint: Voluntary request for tubal sterilization History of present illness: G4, P4. Last vaginal delivery December 10, 2021. Does not want any more pregnancies. Past History Past Medical History: no pertinent history - Obstetrical History : 5 Medications and Allergies Allergies Allergy/AdvReac Type Severity Reaction Status Date / Time No Known Allergies Allergy Verified 12/22/21 15:43 Home Medications Medication Instructions Recorded Confirmed Last Taken Type No Known Home Medications [No 12/18/21 12/22/21 Unknown History Reported Home Medications] Active Meds: Active Medications Celecoxib (Celecoxib 200 Mg Cap) 400 mg PO PREOP NR Stop: 12/26/21 23:59 Last Admin: 12/26/21 11:51 Dose: 400 mg Hydromorphone HCl (Hydromorphone 1 Mg/1 Ml Inj) 0.25 mg IV Q10MIN PRN PRN Reason: Pain, Moderate (4-6) Hydromorphone HCl (Hydromorphone 1 Mg/1 Ml Inj) 0.5 mg IV Q10MIN PRN PRN Reason: Pain , Severe (7-10) Lactated Ringer's (Lactated Ringers) 1,000 mls @ 125 mls/hr IV DIRECT PATRICIA Last Admin: 12/26/21 09:50 Dose: 125 mls/hr Ondansetron HCl (Ondansetron 4 Mg/2 Ml Inj) 4 mg IV ONCE PRN PRN Reason: Nausea And Vomiting Review of Systems All systems: negative - Vital Signs Vital signs: Vital Signs Temp Pulse Resp BP Pulse Ox 98.6 F 61 16 106/75 96 12/26/21 09:45 12/26/21 09:45 12/26/21 09:45 12/26/21 09:45 12/26/21 09:45 Temp Pulse Resp BP Pulse Ox 98.6 F 61 18 106/75 96 12/26/21 10:00 12/26/21 10:00 12/26/21 12:22 12/26/21 10:00 12/26/21 10:00 - Physical Exam Breasts: Positive: deferred Cardiovascular: Normal S1, Normal S2 Lungs: Positive: Normal air movement Abdomen: Positive: normal appearance, soft, normal bowel sounds. Negative: tenderness Genitourinary (Female): Positive: normal external genitalia Vagina: Positive: normal moisture Cervix: Negative: lesion, discharge Uterus: Positive: normal size, normal contour Adnexa: both: normal Anus/Rectum: Positive: normal perianal skin, heme negative. Negative: rectal mass, hemorrhoids Deep Tendon Reflex Grade: Normal +2 Results All other labs normal. Assessment and Plan - Patient Problems (1) Request for sterilization Current Visit: Yes Status: Acute Plan to address problem: For laparoscopic bilateral salpingectomy.
[2021-12-26] MEDS: HYDROmorphone 1 MG/1 ML INJ IV PRN ×2 (13:55→14:05)
[2021-12-26 14:32] VITALS: BP 105/65
--- NOTE | 2021-12-26 18:23 | Post Anesthesia Evaluation ---
- Post Anesthesia Evaluation Patient Participated: Yes Airway Patent: Yes Stable Respiratory Function: Yes Nausea/Vomiting: No Temp > 96.8F: Yes Pain Manageable: Yes Adequeate Hydration: Yes Anesthesia Complications: No Block Receding Appropriately: Not Applicable Patient on Ventilator: No
== END 2021-12-26 15:00 | disposition home or self-care (01) ==
LOC: OR 09:15
PROVIDERS: ATTEND Obstetrics & Gynecology
DX: Z30.2 Encounter for sterilization (principal); Z87.898 Personal history of other specified conditions; Z98.890 Other specified postprocedural states; F31.9 Bipolar disorder, unspecified
CPT/HCPCS: 58670; 81025; 88302; J0330; J0690; J1100; J1170; J1815; J1885; J2001; J2405; J2704; J2710; J3010; J3490; J7120